=== PATIENT | male | born 1935 | race Caucasian/White ===

== ENCOUNTER 2016-10-16 06:34 | Day surgery (SDC) | payer MEDICARE, BC ==
[2016-10-16] MEDS ORDERED: Lactated Ringers 1,000 ML IV SCH (06:45)
[2016-10-16] MEDS ORDERED: Propofol 200 MG/20 ML SDV IV ONE (08:00)
--- NOTE | 2016-10-16 08:44 | PCM.OPNOTE ---
- General Post-Op/Procedure Note Date of Surgery/Procedure: 10/16/16 Operative Procedure(s): c scope with bx Findings: ascending colon polyp heptic flexure polyp x3 rectal polyp Pre Op Diagnosis: hx of ascending colon polyp with CIS Post-Op Diagnosis: ascending colon polyp. heptic flexure polyp x3. rectal polyp Anesthesia Technique: MAC Primary Surgeon: Ha Vanegas Anesthesia Provider: Wilian Deutsch Pathology: ascending colon polyp heptic flexure polyp x3 rectal polyp Complications: None Condition: Good Free Text/Narrative:: see dictation
[2016-10-16 10:34] VITALS: BP 150/83
--- NOTE | 2016-10-16 14:04 | OR ---
DATE OF OPERATION: 10/16/2016 SURGEON: Ha Vanegas MD PROCEDURE PERFORMED: Colonoscopy with cold forceps and cold loop biopsy. 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 POSTOPERATIVE DIAGNOSES: Ascending colon polyp, hepatic flexure polyps x3, and rectal polyp. INDICATIONS FOR PROCEDURE: This is an 81-year-old white male, who presents for followup colonoscopy. He has a history of a polyp of the ascending colon, with carcinoma in situ and presents now for followup colonoscopy. DESCRIPTION OF OPERATION: After an excellent IV sedation was administered, digital rectal exam was performed. No marked abnormality was noted. The flexible colonoscope was inserted and advanced to the cecum without difficulty. The prep was excellent. The following findings were noted: Ascending colon, a small hyperplastic- appearing lesion biopsied with cold loop snare and cold forceps biopsy, sent for permanent. Hepatic flexure, a total of three polyps in one area appearing hyperplastic, but these were biopsied given his history, and sent for permanent. The remainder of the transverse colon was unremarkable. Descending colon was unremarkable. Sigmoid had mild diverticulosis. Rectum and anus was remarkable for small polyp, biopsied with the 5 mm biopsy forceps and sent for permanent. The colon was deflated. The scope was removed. The patient tolerated the procedure well, and was taken to recovery in good condition. /[id number] /MODL
== END 2016-10-16 09:54 | disposition home or self-care (01) ==
LOC: FB.SDS 06:34
PROVIDERS: ATTEND Surgery
DX: D12.2 Benign neoplasm of ascending colon (principal); D12.3 Benign neoplasm of transverse colon; K62.1 Rectal polyp; Z86.010 Personal history of colon polyps; I10 Essential (primary) hypertension; E11.9 Type 2 diabetes mellitus without complications; M19.90 Unspecified osteoarthritis, unspecified site; Z79.4 Long term (current) use of insulin; Z79.899 Other long term (current) drug therapy; Z98.890 Other specified postprocedural states
CPT/HCPCS: 00810; 45380; 45385; 82962; 88305; J2704; J7120

== ENCOUNTER 2017-09-01 09:34 | Emergency (ER) | payer MEDICARE, BC ==
--- NOTE | 2017-09-01 10:01 | EDM.PDOC ---
ED HPI GENERAL MEDICAL PROBLEM - General Chief Complaint: Gastrointestinal Problem Stated Complaint: STOMACH ISSUES AND DIARRHEA Time Seen by Provider: 09/01/17 09:37 Source of Information: Reports: Patient, Family History Limitations: Reports: No Limitations - History of Present Illness INITIAL COMMENTS - FREE TEXT/NARRATIVE: 82 y.o.w male came to the ed with his due to bloody diarrhea for 5 days.Pt had pneumonia and was on ceftin for 10 days. No F/C, no N/V. no C/PPt had minor gen abd. pain, no dysuria. Pt had a colonoscopy in September last year which was nl as per pt. 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) Other Treatments STEEL BOX TOE INSERTER: immodium abdomen Pain Score (Numeric/FACES): 6 - Related Data Allergies Allergy/AdvReac Type Severity Reaction Status Date / Time No Known Allergies Allergy Verified 09/01/17 09:50 Home Meds: Home Meds Ferrous Sulfate 325 mg PO DAILY 03/10/15 [History] Finasteride [Proscar] 5 mg PO DAILY 03/10/15 [History] Insulin Glarg,Human.Rec.Analog [Lantus Solostar] 30 unit SUBCUT BEDTIME [History] Naproxen Sodium [Aleve] 220 mg PO BID PRN 03/10/15 [History] glipiZIDE [Glucotrol] 10 mg PO BID 03/10/15 [History] Metoprolol Succinate [Toprol XL] 100 mg PO DAILY 07/08/15 [History] amLODIPine [Norvasc] 5 mg PO DAILY 07/08/15 [History] Albuterol [Proventil Neb Soln] 3 ml INH QID PRN 10/15/16 [History] Clobetasol [Clobetasol Propionate 0.05% Cream] 15 gm TOP BID PRN 10/15/16 [ History] Fexofenadine [Susana] 180 mg PO DAILY PRN 10/15/16 [History] Furosemide [Lasix] 40 mg PO DAILY 10/15/16 [History] Hydrochlorothiazide 12.5 mg PO DAILY 10/15/16 [History] Olmesartan [Benicar] 40 mg PO DAILY 10/15/16 [History] Ciprofloxacin HCl [Cipro] 500 mg PO BID #20 tablet 09/01/17 [Rx] metroNIDAZOLE [Flagyl] 500 mg PO Q8H #30 tab 09/01/17 [Rx] Past Medical History HEENT History: Reports: Hard of Hearing, Sinusitis Cardiovascular History: Reports: Hypertension, SOB on Exertion Respiratory History: Reports: Bronchitis, Recurrent, Pneumonia, Recurrent Gastrointestinal History: Reports: Colon Polyp Genitourinary History: Reports: Prostate Disorder 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 Musculoskeletal History: Reports: Arthritis, Back Pain, Chronic Neurological History: Reports: Neuropathy, Peripheral Psychiatric History: Reports: None Endocrine/Metabolic History: Reports: Diabetes, Type II, IDDM, Obesity/BMI 30+ Hematologic History: Reports: Iron Deficiency Immunologic History: Reports: None Oncologic (Cancer) History: Reports: Colon, Other (See Below) Other Oncologic History: 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; NO CHEMO OR RADIATION NEEDED Dermatologic History: Reports: None - Infectious Disease History Infectious Disease History: Reports: Chicken Pox, Measles, Mumps - Past Surgical History Head Surgeries/Procedures: Reports: None HEENT Surgical History: Reports: Cataract Surgery, Other (See Below) Other HEENT Surgeries/Procedures: lid lift on eyes bilat GI Surgical History: Reports: Appendectomy, Colonoscopy, Hernia Repair/Other Musculoskeletal Surgical History: Reports: Other (See Below) Other Musculoskeletal Surgeries/Procedures:: HAMMER TOES Social & Family History - Caffeine Use Caffeine Use: Reports: Coffee ED ROS GENERAL - Review of Systems Review Of Systems: See Below Constitutional: Reports: No Symptoms HEENT: Reports: No Symptoms Respiratory: Reports: No Symptoms Cardiovascular: Reports: No Symptoms Endocrine: Reports: No Symptoms GI/Abdominal: Reports: Hematochezia : Reports: No Symptoms Musculoskeletal: Reports: No Symptoms Skin: Reports: No Symptoms Neurological: Reports: No Symptoms Psychiatric: Reports: No Symptoms Hematologic/Lymphatic: Reports: No Symptoms Immunologic: Reports: No Symptoms ED EXAM, GI/ABD - Physical Exam Exam: See Below Exam Limited By: No Limitations General Appearance: Alert, WD/WN, Mild Distress Eyes: Bilateral: Normal Appearance Ears: Normal External Exam Nose: Normal Inspection Throat/Mouth: Normal Inspection Head: Atraumatic, Normocephalic Neck: Normal Inspection, Supple, Non-Tender Respiratory/Chest: No Respiratory Distress, Lungs Clear, Normal Breath Sounds, No Accessory Muscle Use, Chest Non-Tender Cardiovascular: Normal Peripheral Pulses, Regular Rate, Rhythm, No Edema, No Gallop, No Rub GI/Abdominal Exam: Tender (APOLONIA RLQ and left lower quadrat of abdomen.) (Male) Exam: No Hernia Rectal (Males) Exam: Deferred Back Exam: Normal Inspection, Full Range of Motion Extremities: Normal Inspection, Normal Range of Motion, Non-Tender, No Pedal Edema Neurological: Alert, Oriented, CN II-XII Intact, Normal Cognition, Normal Gait Psychiatric: Normal Affect, Normal Mood Skin Exam: Warm, Dry, Intact, Normal Color, No Rash Lymphatic: No Adenopathy Course - Vital Signs Text/Narrative:: 82 y.o.w male came to the ed with his due to bloody diarrhea for 5 days.Pt had pneumonia and was on ceftin for 10 days. No F/C, no N/V. no C/PPt had minor gen abd. pain, no dysuria. Pt had a colonoscopy in September last year which was nl as per pt. No other acute medical issues BP 155/56 Pulse 82 RR 20 Pulse ox 98 temp 36.8 PE: WNWD W M NAD with bloody diarrhea and abd. discomfort. Labs: WBC 10.1 HGB 10.1 HCT 29.3 Inr 0.99 Cr 3.0 KEVIN 39 Na 138 K 4.0 C Diff and Stool cx results are pending imaging: CT abd with po contrast: Diffuse colitis Impression: Diffuse colitis, hematochezia 11.53 am Consultation: Vimal, Hospitalist: Call Dr. Vanegas 11.58 am Consultation: Dr. Vanegas, Surgeon: Abx and F/U at his clinic. Tx: Cipra and Flagyl Reexam: Improved Plan: D/C with instruction Last Recorded V/S: Last Vital Signs Temp 36.8 C 09/01/17 09:37 Pulse 79 09/01/17 11:40 Resp 16 09/01/17 11:40 BP 146/60 H 09/01/17 11:40 Pulse Ox 100 09/01/17 11:40 - Orders/Labs/Meds Orders: Active Orders 24 hr Category Date Time Status Abdomen Pelvis w Cont [CT] Stat Exams 09/01/17 09:59 Taken C DIFFICILE, CYTOTOXIN B Routine Lab 09/01/17 12:10 Received H. PYLORI STOOL AG, EIA Routine Lab 09/01/17 12:10 Received STOOL CULTURE Routine Lab 09/01/17 12:10 Received UA W/MICROSCOPIC [URIN] Stat Lab 09/01/17 10:15 Ordered Labs: Laboratory Tests 09/01/17 09/01/17 09/01/17 Range/Units 10:15 10:15 10:15 WBC 10.1 (4.5-12.0) X10-3/uL RBC 3.59 L (4.30-5.75) x10(6)uL Hgb 10.1 L D (11.5-15.5) g/dL Hct 29.8 L D (30.0-51.3) % MCV 83.1 (80-96) fL MCH 28.1 (27.7-33.6) pg MCHC 33.8 (32.2-35.4) g/dL RDW 14.3 (11.5-15.5) % Plt Count 237 (125-369) X10(3)uL MPV 6.4 L (7.4-10.4) fL Neut % (Auto) 76.0 (46-82) % Lymph % (Auto) 9.7 L (13-37) % Mcintosh % (Auto) 10.4 (4-12) % Eos % (Auto) 4 (1.0-5.0) % Baso % (Auto) 0 (0-2) % Neut # (Auto) 7.7 (1.6-8.3) # Lymph # (Auto) 1.0 (0.6-5.0) # Mcintosh # (Auto) 1.0 (0.0-1.3) # Eos # (Auto) 0.4 (0.0-0.8) # Baso # (Auto) 0.0 (0.0-0.2) # PT 9.6 (8.7-11.1) INR 0.99 (0.89-1.13) Sodium (135-145) mmol/L Potassium (3.5-5.3) mmol/L Chloride (100-110) mmol/L Carbon Dioxide (21-32) mmol/L BUN (7-18) mg/dL Creatinine (0.70-1.30) mg/dL Est Cr Clr Drug Dosing mL/min Estimated GFR (MDRD) (>60) BUN/Creatinine Ratio (9-20) Glucose (80-116) mg/dL Calcium (8.6-10.2) mg/dL Total Bilirubin (0.1-1.3) mg/dL Direct Bilirubin (0.10-0.20) mg/dL AST (5-25) IU/L ALT (12-36) U/L Alkaline Phosphatase (56-112) IU/L Total Protein (6.0-8.0) g/dL Albumin (3.2-4.6) g/dL Amylase (25-115) U/L Urine Color Yellow (YELLOW) Urine Appearance Clear (CLEAR) Urine pH 5.0 (5.0-6.5) Ur Specific Barry 1.020 (1.010-1.025) Urine Protein 500 H (NEGATIVE) mg/dL Urine Glucose (UA) 250 H (NEGATIVE) mg/dL Urine Ketones Negative (NEGATIVE) mg/dL Urine Occult Blood Negative (NEGATIVE) Urine Nitrite Negative (NEGATIVE) Urine Bilirubin Negative (NEGATIVE) Urine Urobilinogen Normal (NEGATIVE) mg/dL Ur Leukocyte Esterase Negative (NEGATIVE) Urine RBC 0-5 (0) Urine WBC 0-5 (0) Ur Squamous Epith Cells Occasional (NS,R,O) Ur Renal Epithelial Cell Occasional H (NS) Amorphous Sediment Moderate Urine Bacteria Moderate H (NS) Hyaline Casts Few H (NS) 09/01/17 09/01/17 Range/Units 10:15 10:15 WBC (4.5-12.0) X10-3/uL RBC (4.30-5.75) x10(6)uL Hgb (11.5-15.5) g/dL Hct (30.0-51.3) % MCV (80-96) fL MCH (27.7-33.6) pg MCHC (32.2-35.4) g/dL RDW (11.5-15.5) % Plt Count (125-369) X10(3)uL MPV (7.4-10.4) fL Neut % (Auto) (46-82) % Lymph % (Auto) (13-37) % Mcintosh % (Auto) (4-12) % Eos % (Auto) (1.0-5.0) % Baso % (Auto) (0-2) % Neut # (Auto) (1.6-8.3) # Lymph # (Auto) (0.6-5.0) # Mcintosh # (Auto) (0.0-1.3) # Eos # (Auto) (0.0-0.8) # Baso # (Auto) (0.0-0.2) # PT (8.7-11.1) INR (0.89-1.13) Sodium 139 (135-145) mmol/L Potassium 4.0 (3.5-5.3) mmol/L Chloride 105 (100-110) mmol/L Carbon Dioxide 23 (21-32) mmol/L BUN 39 H (7-18) mg/dL Creatinine 3.0 H* (0.70-1.30) mg/dL Est Cr Clr Drug Dosing 21.82 mL/min Estimated GFR (MDRD) 20 L (>60) BUN/Creatinine Ratio 13.0 (9-20) Glucose 201 H (80-116) mg/dL Calcium 8.0 L (8.6-10.2) mg/dL Total Bilirubin 0.7 (0.1-1.3) mg/dL Direct Bilirubin 0.11 (0.10-0.20) mg/dL AST 13 (5-25) IU/L ALT 16 (12-36) U/L Alkaline Phosphatase 88 (56-112) IU/L Total Protein 6.5 (6.0-8.0) g/dL Albumin 2.4 L (3.2-4.6) g/dL Amylase 19 L (25-115) U/L Urine Color (YELLOW) Urine Appearance (CLEAR) Urine pH (5.0-6.5) Ur Specific Barry (1.010-1.025) Urine Protein (NEGATIVE) mg/dL Urine Glucose (UA) (NEGATIVE) mg/dL Urine Ketones (NEGATIVE) mg/dL Urine Occult Blood (NEGATIVE) Urine Nitrite (NEGATIVE) Urine Bilirubin (NEGATIVE) Urine Urobilinogen (NEGATIVE) mg/dL Ur Leukocyte Esterase (NEGATIVE) Urine RBC (0) Urine WBC (0) Ur Squamous Epith Cells (NS,R,O) Ur Renal Epithelial Cell (NS) Amorphous Sediment Urine Bacteria (NS) Hyaline Casts (NS) Meds: Medications Discontinued Medications Generic Name Dose Route Start Last Admin Trade Name Mazin PRN Reason Stop Dose Admin Ciprofloxacin 500 mg 09/01/17 12:07 09/01/17 12:12 Ciprofloxacin Hcl PO 09/01/17 12:08 500 mg ONETIME ONE Administration Iopamidol 100 ml 09/01/17 10:05 09/01/17 10:41 Isovue-370 (76%) IV 09/01/17 10:06 Not Given ONETIME ONE Metronidazole 500 mg 09/01/17 12:07 09/01/17 12:12 Flagyl PO 09/01/17 12:08 500 mg ONETIME ONE Administration Departure - Departure Time of Disposition: 12:15 Disposition: Home, Self-Care 01 Condition: Good Clinical Impression: Colitis presumed infectious - Discharge Information Prescriptions: Ciprofloxacin HCl [Cipro] 500 mg PO BID #20 tablet metroNIDAZOLE [Flagyl] 500 mg PO Q8H #30 tab Instructions: Colitis Referrals: Fortunato Leong MD [Primary Care Provider] - Ha Vanegas MD [Physician] - Forms: ED Department Discharge Additional Instructions: Please take the Abx as recommended, please f/u with Dr. Vanegas, please come back if your symptoms get worse acutely - My Orders Last 24 Hours: My Active Orders 09/01/17 09:59 Abdomen Pelvis w Cont [CT] Stat 09/01/17 10:15 UA W/MICROSCOPIC [URIN] Stat 09/01/17 12:10 C DIFFICILE, CYTOTOXIN B Routine H. PYLORI STOOL AG, EIA Routine STOOL CULTURE Routine - Assessment/Plan Last 24 Hours: My Active Orders 09/01/17 09:59 Abdomen Pelvis w Cont [CT] Stat 09/01/17 10:15 UA W/MICROSCOPIC [URIN] Stat 09/01/17 12:10 C DIFFICILE, CYTOTOXIN B Routine H. PYLORI STOOL AG, EIA Routine STOOL CULTURE Routine
[2017-09-01] MEDS ORDERED: Iopamidol 755 Mg/ML 100 ML Bottle IV ONE (10:05)
[2017-09-01 11:50] VITALS: BP 146/60
[2017-09-01] MEDS ORDERED: metroNIDAZOLE 500 MG Tab PO ONE (12:07)
[2017-09-01] MEDS ORDERED: Ciprofloxacin 500 MG Tab PO ONE (12:07)
== END 2017-09-01 12:25 | disposition home or self-care (01) ==
LOC: FB.ED 09:34
DX: K52.9 Noninfective gastroenteritis and colitis, unspecified (principal); K92.1 Melena; I10 Essential (primary) hypertension; Z79.4 Long term (current) use of insulin; Z79.899 Other long term (current) drug therapy; Z79.84 Long term (current) use of oral hypoglycemic drugs; Z87.01 Personal history of pneumonia (recurrent)
CPT/HCPCS: 36415; 74177; 80048; 80076; 81001; 82150; 85025; 85610; 87045; 87046; 87230; 87338; 87427; 99284; A9270

== ENCOUNTER 2018-11-09 08:57 | Emergency (ER) | payer MEDICARE, BC ==
[2018-11-09 09:21] VITALS: BP 168/60; PULSE 63
--- NOTE | 2018-11-09 09:32 | EDM.PDOC ---
ED HPI GENERAL MEDICAL PROBLEM - General Chief Complaint: General Stated Complaint: DIZZY, DOUBLE VISION Time Seen by Provider: 11/09/18 09:10 Source of Information: Reports: Patient, EMS, Family, Old Records History Limitations: Reports: No Limitations - History of Present Illness INITIAL COMMENTS - FREE TEXT/NARRATIVE: Robe comes into [facility] ED by EMS following an episode of suspected near faint this am. He was sitting at a lunch counter, had just finished breakfast and was reading the newspaper when spouse noticed that he had slumped over. He did not lose consciousness but complained of dizziness ie lt headiness and some blurred vision which cleared in moments. There was no facial asymmetry, slurred speech, or focal weakness. Spouse summoned EMS who arrived shortly thereafter. His VS were stable, no non-FBS obtained. His morning FBS 137 mg%. 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 He is currently asx. - Related Data Allergies Allergy/AdvReac Type Severity Reaction Status Date / Time No Known Allergies Allergy Verified 09/18/17 17:33 Home Meds: Home Meds Ferrous Sulfate 325 mg PO BIDMEALS 03/10/15 [History] Finasteride [Proscar] 5 mg PO BEDTIME 03/10/15 [History] glipiZIDE [Glucotrol] 10 mg PO BIDMEALS 03/10/15 [History] Albuterol [Proventil Neb Soln] 3 ml INH QID PRN 10/15/16 [History] Olmesartan [Benicar] 40 mg PO DAILY 10/15/16 [History] Albuterol [Ventolin HFA] 2 puff IH Q4H PRN 09/19/17 [History] Dextran 70/Hypromellose [Artificial Tears] 1 drop EYEBOTH QID PRN 09/19/17 [ History] Insulin Glargine,Hum.Rec.Anlog [Basaglar Kwikpen U-100] 40 units SUBCUT BEDTIME 09/19/17 [History] Metoprolol Succinate [Toprol XL 100mg] 50 mg PO DAILY 09/19/17 [History] Metoprolol Succinate [Toprol XL 100mg] 100 mg PO BEDTIME 09/19/17 [History] Furosemide [Lasix] 20 mg PO DAILY #30 tablet 09/22/17 [Rx] Vancomycin [Vancocin 125 MG/5 ML Soln] 125 mg PO QID ml 09/22/17 [Rx] amLODIPine Besylate [Norvasc] 10 mg PO DAILY #30 tablet 09/22/17 [Rx] hydrALAZINE [Apresoline] 10 mg PO Q12H #60 tablet 09/22/17 [Rx] Past Medical History HEENT History: Reports: Hard of Hearing, Sinusitis Cardiovascular History: Reports: Hypertension, SOB on Exertion Respiratory History: Reports: Bronchitis, Recurrent, Pneumonia, Recurrent Gastrointestinal History: Reports: Colon Polyp, Other (See Below) (c.diff enterocolitis) Genitourinary History: Reports: Chronic Renal Insuffiency, Prostate Disorder 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 Musculoskeletal History: Reports: Arthritis, Back Pain, Chronic Neurological History: Reports: Neuropathy, Peripheral Psychiatric History: Reports: None Endocrine/Metabolic History: Reports: Diabetes, Type II, IDDM, Obesity/BMI 30+ Hematologic History: Reports: Iron Deficiency Immunologic History: Reports: None Oncologic (Cancer) History: Reports: Colon, Other (See Below) Other Oncologic History: 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; NO CHEMO OR RADIATION NEEDED Dermatologic History: Reports: None - Infectious Disease History Infectious Disease History: Reports: Chicken Pox, Measles, Mumps - Past Surgical History Head Surgeries/Procedures: Reports: None HEENT Surgical History: Reports: Cataract Surgery, Other (See Below) Other HEENT Surgeries/Procedures: lid lift on eyes bilat GI Surgical History: Reports: Appendectomy, Colonoscopy, Hernia Repair/Other Musculoskeletal Surgical History: Reports: Other (See Below) Other Musculoskeletal Surgeries/Procedures:: HAMMER TOES Social & Family History - Family History Family Medical History: Noncontributory - Caffeine Use Caffeine Use: Reports: Coffee Other Caffeine Use: 3cups daily ED ROS GENERAL - Review of Systems Review Of Systems: See Below Constitutional: Reports: No Symptoms HEENT: Reports: Vision Change (transient) Respiratory: Reports: No Symptoms Cardiovascular: Reports: Lightheadedness Endocrine: Reports: No Symptoms GI/Abdominal: Reports: No Symptoms : Reports: No Symptoms Musculoskeletal: Reports: No Symptoms Skin: Reports: Lesions (trophic ulcer R 1st MTP pad) Neurological: Reports: Dizziness, Paresthesia, Pre-Existing Deficit Psychiatric: Reports: No Symptoms Hematologic/Lymphatic: Reports: No Symptoms Immunologic: Reports: No Symptoms ED EXAM, GENERAL - Physical Exam Exam: See Below Exam Limited By: No Limitations General Appearance: Alert, WD/WN, No Apparent Distress Eye Exam: Bilateral Eye: EOMI, Normal Inspection, PERRL Ears: Normal External Exam Nose: Normal Inspection Throat/Mouth: Normal Inspection, Normal Oropharynx, Normal Voice Head: Normocephalic Neck: Normal Inspection, Supple Respiratory/Chest: No Respiratory Distress, Lungs Clear, Normal Breath Sounds, No Accessory Muscle Use, Chest Non-Tender Cardiovascular: Regular Rate, Rhythm, No Edema, No JVD, No Murmur GI/Abdominal: Normal Bowel Sounds, Soft, Non-Tender, No Organomegaly, No Distention, No Mass, Other (peritoneal catheter present RUQ) (Male) Exam: Deferred Rectal (Males) Exam: Deferred Back Exam: Normal Inspection Extremities: Non-Tender, No Pedal Edema, Other (trophic ulcer R foot) Neurological: Alert, Oriented, CN II-XII Intact, Sensory/Motor Deficit Psychiatric: Normal Affect, Normal Mood Skin Exam: Warm, Dry, Intact, Pallor Lymphatic: No Adenopathy Course - Vital Signs Text/Narrative:: Following assessment, Robe remained on the media monitor and remained hemodynamically stable. Orthostatic BPs were obtained at time of discharge: no appreciable change with supine, sitting, or standing. His labs were baseline, Troponin I <0.017. Last Recorded V/S: Last Vital Signs Temp 36.4 C 11/09/18 08:57 Pulse 63 11/09/18 08:57 Resp 14 11/09/18 08:57 BP 168/60 H 11/09/18 08:57 Pulse Ox 100 11/09/18 08:57 - Orders/Labs/Meds Orders: Active Orders 24 hr Category Date Time Status EKG Documentation Completion [RC] ASDIRECTED Care 11/09/18 09:24 Active EKG 12 Lead [EK] Routine Ther 11/09/18 09:24 Ordered Labs: Laboratory Tests 11/09/18 11/09/18 11/09/18 Range/Units 09:39 09:39 09:39 WBC 9.6 (4.5-12.0) X10-3/uL RBC 3.24 L (4.30-5.75) x10(6)uL Hgb 10.0 L (13.5-17.8) g/dL Hct 27.6 L (30.0-51.3) % MCV 85.1 (80-96) fL MCH 30.9 (27.7-33.6) pg MCHC 36.3 H (32.2-35.4) g/dL RDW 14.4 (11.5-15.5) % Plt Count 207 (125-369) X10(3)uL MPV 6.6 L (7.4-10.4) fL Neut % (Auto) 84.4 H (46-82) % Lymph % (Auto) 7.3 L (13-37) % Burke % (Auto) 5.3 (4-12) % Eos % (Auto) 3 (1.0-5.0) % Baso % (Auto) 1 (0-2) % Neut # (Auto) 8.2 (1.6-8.3) # Lymph # (Auto) 0.7 (0.6-5.0) # Burke # (Auto) 0.5 (0.0-1.3) # Eos # (Auto) 0.2 (0.0-0.8) # Baso # (Auto) 0.0 (0.0-0.2) # Sodium 137 (135-145) mmol/L Potassium 4.3 (3.5-5.3) mmol/L Chloride 98 L D (100-110) mmol/L Carbon Dioxide 29 (21-32) mmol/L BUN 84 H D (7-18) mg/dL Creatinine 5.0 H* (0.70-1.30) mg/dL Est Cr Clr Drug Dosing 12.50 mL/min Estimated GFR (MDRD) 11 L (>60) BUN/Creatinine Ratio 16.8 (9-20) Glucose 205 H D (80-116) mg/dL Calcium 9.0 (8.6-10.2) mg/dL Total Bilirubin 0.5 (0.1-1.3) mg/dL AST 12 (5-25) IU/L ALT 19 D (12-36) U/L Alkaline Phosphatase 82 (56-112) IU/L Troponin I < 0.017 L (<0.017-0.056) ng/mL Total Protein 6.6 (6.0-8.0) g/dL Albumin 2.9 L (3.2-4.6) g/dL Globulin 3.7 g/dL Albumin/Globulin Ratio 0.8 Departure - Departure Time of Disposition: 10:33 Disposition: Home, Self-Care 01 Condition: Good Clinical Impression: Near syncope - Discharge Information *PRESCRIPTION DRUG MONITORING PROGRAM REVIEWED*: Not Applicable *COPY OF PRESCRIPTION DRUG MONITORING REPORT IN PATIENT JAMES: Not Applicable Referrals: Fortunato Leong MD [Primary Care Provider] - Forms: ED Department Discharge - Problem List & Annotations (1) Near syncope SNOMED Code(s): 499592434 Code(s): R55 - SYNCOPE AND COLLAPSE Status: Acute Current Visit: Yes Annotation/Comment:: Robe is returned home to remain on peritoneal dialysis and no change in meds. - Problem List Review Problem List Initiated/Reviewed/Updated: Yes - My Orders Last 24 Hours: My Active Orders 11/09/18 09:24 EKG Documentation Completion [RC] ASDIRECTED EKG 12 Lead [EK] Routine - Assessment/Plan Last 24 Hours: My Active Orders 11/09/18 09:24 EKG Documentation Completion [RC] ASDIRECTED EKG 12 Lead [EK] Routine Plan: Follow up with PCP.
== END 2018-11-09 10:41 | disposition home or self-care (01) ==
LOC: FB.ED 08:57
DX: R55 Syncope and collapse (principal); I13.10 Hypertensive heart and chronic kidney disease without heart failure, with stage 1 through stage 4 chronic kidney disease, or unspecified chronic kidney disease; E11.22 Type 2 diabetes mellitus with diabetic chronic kidney disease; N18.9 Chronic kidney disease, unspecified; E11.42 Type 2 diabetes mellitus with diabetic polyneuropathy; M19.90 Unspecified osteoarthritis, unspecified site; E66.9 Obesity, unspecified; Z68.30 Body mass index [BMI] 30.0-30.9, adult; Z79.4 Long term (current) use of insulin; Z79.899 Other long term (current) drug therapy
CPT/HCPCS: 36415; 80053; 84484; 85025; 93005; 99284-25